=== PATIENT | female | born 1950 | race Caucasian/White ===

== ENCOUNTER 2020-01-26 12:30 | Observation (INO) | payer MEDICARE, OTHER, MEDICAID ==
[2020-01-25 10:02] VITALS: BMI 30.7
[~2020-01-26 12:30] MED LIST: Dexamethasone 20 MG/5 ML VIAL ONE; Lidocaine 1% PF 5 ML VIAL ONE; PROPOFOL 200 MG/20 ML VIAL ONE; Succinylcholine 200 MG/10 ml SYRINGE FS ONE
[2020-01-26] MEDS ORDERED: Lidocaine 1% w/Epinephrine 1:100K 20 ML VIAL ONE (14:20)
[2020-01-26 14:21] LABS: Hemoglobin 14.1 g/dL (12.0-16.0)
[2020-01-26] MEDS ORDERED: PROPOFOL 20 ML ONE (14:27)
[2020-01-26] MEDS ORDERED: Fentanyl 100 MCG/2 ML VIAL ONE ×3 (14:38→16:59)
[2020-01-26 14:43] LABS: Anion Gap 16 mmol/L (10-20); BUN (Urea Nitrogen) 17 mg/dL (9.8-20.1); Calc. Creatinine Clearance 65 mL/min (70-130); Calcium 9.6 mg/dL (7.8-10.44); Carbon Dioxide 26 mmol/L (23-31); Chloride 101 mmol/L (98-107); Estimated GFR-MDRD 51; Glucose 92 mg/dL (80-115); Potassium 3.1 mmol/L (3.5-5.1); Sodium 140 mmol/L (136-145)
[2020-01-26] MEDS ORDERED: Morphine 2 MG/ML VIAL SLOW IVP PRN (17:36)
[2020-01-26] MEDS ORDERED: Ondansetron PF 4 MG/2 ML Vial IVP PRN (17:36)
[2020-01-26] MEDS ORDERED: Melatonin 3 MG TAB PO PRN (19:11)
[2020-01-26] MEDS ORDERED: Meloxicam 15 MG TAB PO PRN (19:12)
[2020-01-26] MEDS: HYDROcodone/Acetaminophen 5/325 mg Tablet PO PRN (19:33)
[2020-01-26] MEDS ORDERED: Atorvastatin Calcium 10 MG TAB PO SCH (21:00)
[2020-01-26] MEDS ORDERED: Lactinex Tablet PO SCH (21:00)
[2020-01-26] MEDS ORDERED: clonazePAM 1 MG TAB PO SCH (21:00)
[2020-01-26] MEDS: Sodium Chloride 0.45% 1,000 ML IV SCH (22:33)
[2020-01-26] MEDS: ceFAZolin 1 GM/D5W 1 GM in Premix Bag 1 BAG IVPB SCH (22:33)
[2020-01-27] MEDS: HYDROcodone/Acetaminophen 5/325 mg Tablet PO PRN ×2 (04:39→10:36)
[2020-01-27] MEDS: ceFAZolin 1 GM/D5W 1 GM in Premix Bag 1 BAG IVPB SCH (06:23)
[2020-01-27] MEDS: Sodium Chloride 0.45% 1,000 ML IV SCH ×2 (06:35→10:44)
[2020-01-27 08:14] VITALS: BP 109/56; TEMP 97.8
[2020-01-27] MEDS ORDERED: Ascorbic Acid 500 mg Chewable Tablet PO SCH (09:00)
[2020-01-27] MEDS ORDERED: Cholecalciferol 1,000 UNITS (25 MCG) TAB PO SCH (09:00)
[2020-01-27] MEDS ORDERED: Multivitamin W/ Minerals 1 TAB PO SCH (09:00)
[2020-01-27] MEDS ORDERED: Hydrochlorothiazide 25 MG TAB PO SCH (09:00)
--- NOTE | 2020-01-27 15:08 | OP ---
DATE OF PROCEDURE: 01/26/2020 PREOPERATIVE DIAGNOSES: 1. Left thyroid mass. 2. Dysphagia. POSTOPERATIVE DIAGNOSES: 1. Left thyroid mass. 2. Dysphagia. PROCEDURE PERFORMED: Left thyroidectomy with intraoperative laryngeal nerve monitor. ESTIMATED BLOOD LOSS: 20 mL. COMPLICATIONS: None. ANESTHESIA: GETA. DESCRIPTION OF PROCEDURE: The patient was taken to the operating room and placed supine on the table. General endotracheal anesthesia was obtained by the Anesthesia Staff. The laryngeal nerve electrodes were confirmed to be between the vocal cords through direct visualization. The tube was then secured to the midline of the upper lip as the shoulder roll was placed. 8 mL of 1% lidocaine with 1:100,000 epinephrine was injected into the anticipated surgical area and the patient was prepped and draped in standard surgical fashion. Following this, a 4 to 5 cm incision was made in a skin crease approximately 2 cm above the sternal notch and the incision was made with a 15 blade through skin, subcutaneous tissue, and the platysmal muscle. Subplatysmal flaps were elevated superiorly to the level of the thyroid notch and inferiorly to the clavicles. Following this, the strap muscles were in the midline. A large 8-cm mass was encountered in the left thyroid lobe completely replacing the entire left thyroid lobe. Dissection was carried down immediately adjacent to the capsule of the thyroid. The middle thyroid vein was suture ligated. The gland was then allowed to be displaced more medially. The left recurrent laryngeal nerve was noted to be coursing approximately 15 degrees from the tracheoesophageal groove. The nerve was identified and protected throughout the procedure. The superior vascular pole of the thyroid was then and suture ligated superiorly, displacing in the gland inferiorly and medially. Following this, the nerve was dissected as it entered the cricothyroid joint and the gland was freed from its attachments in this area. Inferior thyroid artery was suture ligated and then the attachments of the gland to the trachea were then transected using the bipolar cautery. Large left thyroid lobe was then clamped and the isthmus along with the left thyroid lobe was then removed from the patient and sent for pathological analysis. The wound was irrigated. Hemostasis was controlled. A drain was placed and the strap muscles were closed using Monocryl stitch. The platysmal layer was then closed using Monocryl stitch and subcutaneous using a 4-0 Monocryl stitch. The skin was closed using Dermabond. The drain was working at the end of the procedure. Job ID: [id number]
== END 2020-01-27 11:45 | disposition home or self-care (01) ==
LOC: SDC 12:30 → 3SE 16:12
PROVIDERS: ADMIT Otolaryngology Plastic Surgery within the Head & Neck; ATTEND Otolaryngology Plastic Surgery within the Head & Neck
PROC: 0GTG0ZZ Resection of Left Thyroid Gland Lobe, Open Approach (ICD-10-PCS; principal; 2020-01-26)
DX: E04.2 Nontoxic multinodular goiter (principal); E78.5 Hyperlipidemia, unspecified; G47.30 Sleep apnea, unspecified; I12.9 Hypertensive chronic kidney disease with stage 1 through stage 4 chronic kidney disease, or unspecified chronic kidney disease; N18.1 Chronic kidney disease, stage 1; M19.90 Unspecified osteoarthritis, unspecified site; F32.9 Major depressive disorder, single episode, unspecified; Z87.891 Personal history of nicotine dependence; Z79.82 Long term (current) use of aspirin; Z79.899 Other long term (current) drug therapy; Z88.8 Allergy status to other drugs, medicaments and biological substances
CPT/HCPCS: 36415; 80048; 85014; 85018; 88307; 93005; 93010; 96365; G0378; J0690; J1100; J2704; J3010